=== PATIENT | female | born 1960 | race Caucasian/White ===

== ENCOUNTER 2020-06-17 18:06 | Inpatient (IN) ==
[2020-06-17 18:36] LABS: Hematocrit 38.5 % (35.3-44.9); Mean Corpuscular HGB Conc 33.8 g/dL (31.6-35.5); Mean Corpuscular Hemoglobin 30.7 pg (28.0-33.3); Mean Corpuscular Volume 90.8 fL (83.0-100.0); Mean Platelet Volume 8.9 fL (9.4-12.4); Platelet Count 221 K/mcL (140-400); Red Blood Count 4.24 M/mcL (3.82-4.97); Red Cell Distribution Width 11.9 % (11.5-14.5)
[2020-06-17 18:58] LABS: BUN/Creatinine Ratio 14 (6-26); Blood Urea Nitrogen 15 mg/dL (8-23); Calcium 9.8 mg/dL (8.6-10.3); Carbon Dioxide 27 mEq/L (23-29); Chloride 104 mEq/L (98-107); Glucose 104 mg/dL (70-105); Osmolality,Calculated 289 (280-300); Potassium 3.9 mEq/L (3.5-5.1); Sodium 139 mEq/L (136-145); Troponin I < 0.03 ng/mL (< 0.04); eGFR For African Americans > 60 (> 60); eGFR For Non-African Americans 51 (> 60)
[2020-06-17 19:54] LABS: Bilirubin,Urine Negative (Negative); Blood,Urine Trace (Negative); Clarity,Urine Clear (Clear); Color,Urine Colorless (Yellow); Glucose,Urine (UA) Normal (Normal); Ketones,Urine Negative (Negative); Leukocyte Esterase,Urine Negative (Negative); Nitrite,Urine Negative (Negative); Protein,Urine Negative (Neg-Trace); RBC,Urine 0-3 per hpf (0-3); Renal Epithelial Cells,Urine Few per hpf (None-Few); Specific Gravity,Urine 1.005 (1.010-1.025); Squamous Epithelial Cell,Urine Few per hpf (None-Few); Urobilinogen,Urine Normal (Normal); WBC,Urine 0-3 per hpf (0-3)
[2020-06-17] MEDS ORDERED: Ondansetron 4 MG/2 ML VIAL IVP PRN (22:15)
[2020-06-17] MEDS ORDERED: Naloxone 0.4 MG/ML INJ IVP PRN (22:15)
[2020-06-18] MEDS ORDERED: Ketorolac 30 MG/ML VIAL IM ONE (00:48)
[2020-06-18] MEDS: Acetaminophen 325 MG TABLET PO PRN (01:17)
[2020-06-18 01:43] LABS: Basophils # 0.1 K/mcL (0.0-0.2); Basophils % 0.6 %; Eosinophils # 0.1 K/mcL (0.0-0.6); Eosinophils % 1.6 %; Hematocrit 38.6 % (35.3-44.9); Hemoglobin 13.2 g/dL (11.5-15.4); Immature Granulocytes % 0.3 % (0-4); Mean Corpuscular HGB Conc 34.2 g/dL (31.6-35.5); Mean Corpuscular Hemoglobin 30.8 pg (28.0-33.3); Mean Corpuscular Volume 90.2 fL (83.0-100.0); Mean Platelet Volume 8.9 fL (9.4-12.4); Monocytes # 0.6 K/mcL (0.0-1.3); Monocytes % 7.2 %; Neutrophils # 5.2 K/mcL (1.6-8.9); Platelet Count 205 K/mcL (140-400); Red Blood Count 4.28 M/mcL (3.82-4.97); Red Cell Distribution Width 11.9 % (11.5-14.5); Segmented Neutrophils % 65.3 %; White Blood Count 7.9 K/mcL (4.3-11.1)
[2020-06-18 01:45] LABS: Prothrombin Time 12.1 Seconds (9.4-12.1)
[2020-06-18 01:57] LABS: Alanine Aminotransferase 18 Units/L (7-52); Albumin 4.2 g/dL (3.5-5.7); Albumin/Globulin Ratio 1.7 (1.1-2.2); Alkaline Phosphatase 97 Units/L (34-104); Aspartate Amino Transferase 34 Units/L (13-39); BUN/Creatinine Ratio 12 (6-26); Bilirubin,Total 0.7 mg/dL (0.3-1.0); Blood Urea Nitrogen 13 mg/dL (8-23); Calcium 9.4 mg/dL (8.6-10.3); Carbon Dioxide 26 mEq/L (23-29); Chloride 106 mEq/L (98-107); Chol/HDL Ratio 2.7 (0-4.9); Cholesterol 129 mg/dL (< 200); Globulin 2.5 g/dL (2.4-3.5); Glucose 104 mg/dL (70-105); HDL Cholesterol 47 mg/dL (40-59); LDL Cholesterol,Calculated 57 mg/dL (< 100); Magnesium 1.8 mg/dL (1.6-2.6); Osmolality,Calculated 290 (280-300); Potassium 3.6 mEq/L (3.5-5.1); Sodium 140 mEq/L (136-145); Total Protein 6.7 g/dL (6.4-8.9); Triglycerides 125 mg/dL (< 150); eGFR For African Americans > 60 (> 60); eGFR For Non-African Americans 53 (> 60)
[2020-06-18 02:09] LABS: Thyroid Stimulating Hormone 0.843 mcIU/mL (0.340-5.600)
[2020-06-18] MEDS ORDERED: *HR* Enoxaparin 40 MG/0.4 ML SYRINGE SQ SCH (09:00)
[2020-06-18] MEDS ORDERED: Perflutren Lipid Microsphere 1.3 ML in 0.9 % Sodium Chloride 8.7 ML IVP PRN (10:14)
[2020-06-18] MEDS: Nicotine 21 MG PATCH.TD24 TD SCH (11:48)
[2020-06-18] MEDS: *HR* HYDROcodone/Acet 7.5/325 mg TABLET PO PRN ×2 (13:44→20:31)
[2020-06-18] MEDS: Pregabalin 75 MG CAPSULE PO SCH (20:31)
[2020-06-19 04:50] LABS: Hematocrit 35.8 % (35.3-44.9); Mean Corpuscular HGB Conc 33.5 g/dL (31.6-35.5); Mean Corpuscular Hemoglobin 30.8 pg (28.0-33.3); Platelet Count 189 K/mcL (140-400); Red Blood Count 3.89 M/mcL (3.82-4.97); Red Cell Distribution Width 12.2 % (11.5-14.5)
[2020-06-19 05:10] LABS: Potassium 4.2 mEq/L (3.5-5.1)
[2020-06-19] MEDS: *HR* Enoxaparin 40 MG/0.4 ML SYRINGE SQ SCH (05:38)
[2020-06-19] MEDS ORDERED: Perflutren Lipid Microsphere 1.3 ML in 0.9 % Sodium Chloride 8.7 ML IVP PRN (08:18)
[2020-06-19] MEDS: Pregabalin 75 MG CAPSULE PO SCH ×2 (08:47→19:35)
[2020-06-19] MEDS: Nicotine 21 MG PATCH.TD24 TD SCH (08:48)
[2020-06-19] MEDS: *HR* LORazepam 0.5 MG TABLET PO SCH (08:48)
[2020-06-19 09:09] LABS: Troponin I < 0.03 ng/mL (< 0.04)
[2020-06-19 09:23] LABS: Thyroid Stimulating Hormone 0.562 mcIU/mL (0.340-5.600)
[2020-06-19] MEDS: *HR* HYDROcodone/Acet 7.5/325 mg TABLET PO PRN ×2 (10:51→19:35)
[2020-06-19] MEDS: Tiotropium 10 INH DOSE IH SCH (19:13)
[2020-06-19] MEDS: Acetaminophen 325 MG TABLET PO PRN (23:40)
[2020-06-20] MEDS: *HR* HYDROcodone/Acet 7.5/325 mg TABLET PO PRN ×2 (01:36→21:35)
[2020-06-20] MEDS: *HR* Enoxaparin 40 MG/0.4 ML SYRINGE SQ SCH (04:57)
[2020-06-20 05:25] LABS: Hematocrit 34.4 % (35.3-44.9); Hemoglobin 11.7 g/dL (11.5-15.4); Mean Corpuscular Hemoglobin 30.9 pg (28.0-33.3); Mean Corpuscular Volume 90.8 fL (83.0-100.0); Mean Platelet Volume 8.9 fL (9.4-12.4); Platelet Count 183 K/mcL (140-400); Red Blood Count 3.79 M/mcL (3.82-4.97); Red Cell Distribution Width 11.9 % (11.5-14.5)
[2020-06-20 06:42] LABS: BUN/Creatinine Ratio 19 (6-26); Blood Urea Nitrogen 20 mg/dL (8-23); Calcium 8.7 mg/dL (8.6-10.3); Carbon Dioxide 27 mEq/L (23-29); Chloride 106 mEq/L (98-107); Glucose 104 mg/dL (70-105); Osmolality,Calculated 291 (280-300); Potassium 3.9 mEq/L (3.5-5.1); Sodium 139 mEq/L (136-145); eGFR For African Americans > 60 (> 60); eGFR For Non-African Americans 52 (> 60)
[2020-06-20] MEDS: Nicotine 21 MG PATCH.TD24 TD SCH (07:52)
[2020-06-20] MEDS: Aspirin Enteric Coated 81 MG Tablet PO SCH (07:52)
[2020-06-20] MEDS: Pregabalin 75 MG CAPSULE PO SCH ×2 (07:52→21:34)
[2020-06-20] MEDS: *HR* LORazepam 0.5 MG TABLET PO SCH (07:52)
[2020-06-20] MEDS: Tiotropium 10 INH DOSE IH SCH (08:04)
[2020-06-21 01:26] LABS: Hematocrit 36.8 % (35.3-44.9); Hemoglobin 12.4 g/dL (11.5-15.4); Mean Corpuscular HGB Conc 33.7 g/dL (31.6-35.5); Mean Corpuscular Hemoglobin 30.8 pg (28.0-33.3); Mean Corpuscular Volume 91.3 fL (83.0-100.0); Mean Platelet Volume 8.8 fL (9.4-12.4); Platelet Count 216 K/mcL (140-400); Red Blood Count 4.03 M/mcL (3.82-4.97); Red Cell Distribution Width 11.9 % (11.5-14.5); White Blood Count 5.8 K/mcL (4.3-11.1)
[2020-06-21 01:43] LABS: BUN/Creatinine Ratio 15 (6-26); Blood Urea Nitrogen 16 mg/dL (8-23); Calcium 9.4 mg/dL (8.6-10.3); Carbon Dioxide 29 mEq/L (23-29); Chloride 105 mEq/L (98-107); Glucose 93 mg/dL (70-105); Osmolality,Calculated 289 (280-300); Potassium 4.3 mEq/L (3.5-5.1); Sodium 139 mEq/L (136-145); eGFR For African Americans > 60 (> 60); eGFR For Non-African Americans 52 (> 60)
[2020-06-21] MEDS: *HR* Enoxaparin 40 MG/0.4 ML SYRINGE SQ SCH (06:26)
[2020-06-21] MEDS: Tiotropium 10 INH DOSE IH SCH (07:56)
[2020-06-21] MEDS: Pregabalin 75 MG CAPSULE PO SCH ×2 (08:20→21:35)
[2020-06-21] MEDS: *HR* LORazepam 0.5 MG TABLET PO SCH (08:20)
[2020-06-21] MEDS: Aspirin Enteric Coated 81 MG Tablet PO SCH (08:20)
[2020-06-21] MEDS: Nicotine 21 MG PATCH.TD24 TD SCH (08:20)
[2020-06-21] MEDS: *HR* HYDROcodone/Acet 7.5/325 mg TABLET PO PRN (21:35)
[2020-06-22] MEDS: *HR* Enoxaparin 40 MG/0.4 ML SYRINGE SQ SCH (05:16)
[2020-06-22] MEDS: Tiotropium 10 INH DOSE IH SCH (08:05)
[2020-06-22] MEDS: Pregabalin 75 MG CAPSULE PO SCH (10:04)
[2020-06-22] MEDS: *HR* LORazepam 0.5 MG TABLET PO SCH (10:04)
[2020-06-22] MEDS: Aspirin Enteric Coated 81 MG Tablet PO SCH (10:04)
[2020-06-22] MEDS: Nicotine 21 MG PATCH.TD24 TD SCH (10:05)
[2020-06-22] MEDS ORDERED: *HR* Midazolam HCl 2 MG/2 ML VIAL ONE (12:39)
[2020-06-22] MEDS ORDERED: 0.9 % Sodium Chloride 1,000 ML ONE (12:40)
[2020-06-22] MEDS ORDERED: *HR* FentaNYL (PF) 100 MCG/2 ML VIAL ONE (12:40)
[2020-06-22 14:30] VITALS: BP 107/69
== END 2020-06-22 19:20 | disposition home or self-care (01) | DRG 64 ==
LOC: EMEROOARM 18:06 → 3ANU 18:06 → SUATTDRO 21:41 → 3ANU 22:36
PROVIDERS: ADMIT Internal Medicine; ATTEND Family Medicine